=== PATIENT | male | born 1995 | race Two or more races ===

== ENCOUNTER 2023-01-20 09:12 | Emergency (ER) | payer MEDICAID, OTHER ==
[~2023-01-20] VITALS: Ht 170.2 cm; Wt 105.7 kg
[2023-01-20 12:18] VITALS: BP 158/97
[2023-01-20] MEDS ORDERED: ERY05OO OP (12:20)
[2023-01-20] MEDS ORDERED: IBUP600T28 PO (12:20)
== END 2023-01-20 13:26 | disposition home or self-care (01) ==
LOC: ER 09:12
DX: S05.01XA Injury of conjunctiva and corneal abrasion without foreign body, right eye, initial encounter (principal); I10 Essential (primary) hypertension; X58.XXXA Exposure to other specified factors, initial encounter; Y93.89 Activity, other specified; Y92.89 Other specified places as the place of occurrence of the external cause; Y99.8 Other external cause status